=== PATIENT | female | born 1955 | race African-American/Black ===

== ENCOUNTER 2017-06-04 09:10 | Emergency (ER) | payer BC, OTHER ==
[~2017-06-04] VITALS: Ht 180.3 cm; Wt 78.9 kg
[~2017-06-04 09:10] MED LIST: DIPHENHIST25 MG PO; FLEXERIL PO; GLUCOPHAGE500 MG PO; HYDROCHLOROTHIA25 M1 PO; MINIPRIN81 MG PO; PRINIVIL5 MG PO; PRINZIDE 20-121 EACH PO; SIMVASTATIN20 MG PO; VICODIN 5-5001 EACH PO
[2017-06-04] MEDS ORDERED: OXYCONTIN10 M1 PO (09:30)
[2017-06-04] MEDS ORDERED: COZAAR 25 MG TA25 M1 PO (09:30)
[2017-06-04] MEDS ORDERED: ZANTAC 150MG T150 MG PO (09:30)
[2017-06-04 11:25] LABS: ABSOLUTE NEUTROPHILS 2.7 thou/uL (1.4-8.2); BASOPHILS 0.9 % (0.0-2.0); EOSINOPHILS 2.8 % (0.0-3.0); HEMATOCRIT 34.5 % (37.0-47.0); LYMPHOCYTES 48.2 % (24.0-44.0); MANUAL DIFF NO; MCH 26.3 pg (26.0-34.0); MCHC 31.9 g/dL (28.0-37.0); MCV 82.4 fL (80.0-100.0); MONOCYTES 7.2 % (1.0-8.0); PLATELET COUNT 406 thou/uL (150-400); POLYS 40.9 % (36.0-66.0); RBC 4.19 mil/uL (4.20-5.00); RDW 16.3 % (10.5-14.5); WBC 6.6 thou/uL (4.0-11.0)
[2017-06-04 11:42] LABS: APTT 23.1 Seconds (24.5-32.8); PROTIME 10.5 Seconds (9.3-11.4)
[2017-06-04 12:04] LABS: CALCIUM 9.7 mg/dL (8.5-10.1); CREATININE 0.8 mg/dL (0.6-1.0); POTASSIUM 4.3 mmol/L (3.5-5.1)
[2017-06-04 12:19] VITALS: BP 128/72
== END 2017-06-04 12:21 | disposition home or self-care (01) ==
LOC: ER 09:10
PROVIDERS: Emergency Medicine
DX: M25.561 Pain in right knee (principal); E11.9 Type 2 diabetes mellitus without complications; E78.00 Pure hypercholesterolemia, unspecified; I10 Essential (primary) hypertension; F17.210 Nicotine dependence, cigarettes, uncomplicated; Z90.710 Acquired absence of both cervix and uterus; Z88.1 Allergy status to other antibiotic agents; Z88.0 Allergy status to penicillin

== ENCOUNTER 2017-08-03 21:51 | Emergency (ER) | payer BC, OTHER ==
[~2017-08-03] VITALS: Ht 180.3 cm; Wt 80.7 kg
--- NOTE | ~2017-08-03 | EKG ---
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
[~2017-08-03 21:51] MED LIST changes: +ASPIR 8181 MG PO; +ASPIRIN325 PO; +BACTRIM DS TAB1 EACH PO; +BUTALB-APAP-CA1 EACH PO; +CIPRO500 M1 PO; +COZAAR 25 MG TA25 M1 PO; +HYDROCODON-ACE1 EAC5 PO; +HYDROCODONE-AP1 EAC6; +HYZAAR 50-12.51 EACH PO; +LINZESS290 MCG PO; +METFORMIN HCL500 MG PO; +NAPROSYN500 MG PO; +OXYCONTIN10 M1 PO; +PERCOCET PO; +ROBAXIN500 MG PO; +TIMOLOL GL0.5 %/5 M1 OPHTHALMIC; +TRIAMCINOLONE A80 G2 TOP; +ZANTAC 150MG T150 MG PO; +ZOCOR20 MG PO
[2017-08-03 22:47] LABS: ABSOLUTE NEUTROPHILS 5.3 thou/uL (1.4-8.2); BASOPHILS 0.8 % (0.0-2.0); EOSINOPHILS 1.2 % (0.0-3.0); HEMATOCRIT 42.1 % (37.0-47.0); HEMOGLOBIN 13.6 gm/dL (12.0-15.0); LYMPHOCYTES 41.5 % (24.0-44.0); MCH 26.6 pg (26.0-34.0); MCHC 32.2 g/dL (28.0-37.0); MCV 82.4 fL (80.0-100.0); MONOCYTES 4.7 % (1.0-8.0); PLATELET COUNT 336 thou/uL (150-400); POLYS 51.8 % (36.0-66.0); RDW 19.3 % (10.5-14.5); WBC 10.1 thou/uL (4.0-11.0)
[2017-08-03 22:48] LABS: MANUAL DIFF NO
[2017-08-03 22:52] LABS: ANION GAP 8 mmol/L (7-16); BUN 19 mg/dL (7-18); CALCIUM 10.1 mg/dL (8.5-10.1); CHLORIDE 101 mmol/L (98-107); CO2 27 mmol/L (21-32); CREATININE 0.9 mg/dL (0.6-1.0); GLUCOSE 203 mg/dL (74-106); POTASSIUM 3.4 mmol/L (3.5-5.1); SODIUM 136 mmol/L (136-145)
[2017-08-03 23:01] LABS: ALBUMIN 3.7 g/dL (3.4-5.0); ALKALINE PHOSPHATASE 100 U/L (46-116); DIRECT BILIRUBIN < 0.1 mg/dL (<0.1-0.3); SGOT 10 U/L (15-37); SGPT 17 U/L (30-65); TOTAL BILIRUBIN 0.2 mg/dL (<0.1-1.0); TOTAL PROTEIN 7.2 g/dL (6.4-8.2); TROPONIN-I < 0.04 ng/mL (<0.04-0.07)
== END 2017-08-04 02:18 | disposition home or self-care (01) ==
LOC: ER 21:51
PROVIDERS: Emergency Medicine
DX: R07.89 Other chest pain (principal); I10 Essential (primary) hypertension; E11.9 Type 2 diabetes mellitus without complications; F41.9 Anxiety disorder, unspecified; E78.00 Pure hypercholesterolemia, unspecified; F17.210 Nicotine dependence, cigarettes, uncomplicated; Z90.710 Acquired absence of both cervix and uterus; Z96.652 Presence of left artificial knee joint; Z87.19 Personal history of other diseases of the digestive system; Z88.5 Allergy status to narcotic agent; Z88.0 Allergy status to penicillin; Z88.1 Allergy status to other antibiotic agents; Z88.6 Allergy status to analgesic agent

== ENCOUNTER 2017-11-18 09:03 | Emergency (ER) | payer BC, OTHER ==
[~2017-11-18] VITALS: Ht 180.3 cm; Wt 80.3 kg
[2017-11-18 09:30] LABS: URINE BILIRUBIN NEGATIVE (Negative); URINE BLOOD NEGATIVE (Negative); URINE CLARITY CLEAR; URINE COLOR YELLOW; URINE GLUCOSE-RANDOM* NEGATIVE (Negative); URINE KETONES NEGATIVE (Negative); URINE NITRITE-REFLEX NEGATIVE (Negative); URINE PROTEIN (DIPSTICK) NEGATIVE (Negative); URINE UROBILINOGEN 0.2 E.U./dl (0.2-1.0)
[2017-11-18 09:32] LABS: URINE LEUKOCYTES-REFLEX TRACE (Negative)
[2017-11-18 09:51] LABS: ABSOLUTE NEUTROPHILS 3.3 thou/uL (1.4-8.2); EOSINOPHILS 2.1 % (0.0-3.0); HEMATOCRIT 41.9 % (37.0-47.0); HEMOGLOBIN 13.8 gm/dL (12.0-15.0); LYMPHOCYTES 45.9 % (24.0-44.0); MCH 28.8 pg (26.0-34.0); MCHC 33.1 g/dL (28.0-37.0); MCV 87.2 fL (80.0-100.0); MONOCYTES 7.3 % (1.0-8.0); PLATELET COUNT 278 thou/uL (150-400); POLYS 43.7 % (36.0-66.0); RDW 15.1 % (10.5-14.5); WBC 7.6 thou/uL (4.0-11.0)
[2017-11-18 10:00] LABS: CALCIUM 9.3 mg/dL (8.5-10.1); CREATININE 0.6 mg/dL (0.6-1.0); POTASSIUM 4.8 mmol/L (3.5-5.1)
[2017-11-18] MEDS ORDERED: FLEXERIL PO (10:21)
[2017-11-18] MEDS ORDERED: MACROBID 100 M100 M1 PO (10:21)
[2017-11-18 10:23] VITALS: BP 109/68
== END 2017-11-18 10:23 | disposition home or self-care (01) ==
LOC: ER 09:03
PROVIDERS: Physician Assistant
DX: S39.012A Strain of muscle, fascia and tendon of lower back, initial encounter (principal); N39.0 Urinary tract infection, site not specified; I10 Essential (primary) hypertension; E11.9 Type 2 diabetes mellitus without complications; E78.00 Pure hypercholesterolemia, unspecified; F41.9 Anxiety disorder, unspecified; F17.210 Nicotine dependence, cigarettes, uncomplicated; Z90.710 Acquired absence of both cervix and uterus; Z88.0 Allergy status to penicillin; Z88.1 Allergy status to other antibiotic agents; Z88.5 Allergy status to narcotic agent; X58.XXXA Exposure to other specified factors, initial encounter; Y93.89 Activity, other specified; Y92.89 Other specified places as the place of occurrence of the external cause; Y99.8 Other external cause status

== ENCOUNTER 2018-03-24 10:19 | Emergency (ER) | payer BC, OTHER ==
[~2018-03-24] VITALS: Ht 180.3 cm; Wt 82.6 kg
[~2018-03-24 10:19] MED LIST changes: +MACROBID 100 M100 M1 PO
[2018-03-24] MEDS ORDERED: BUTALB-APAP-CA1 EACH PO (11:25)
[2018-03-24] MEDS ORDERED: CYCLOBENZAPRINE5 MG PO (11:25)
== END 2018-03-24 11:38 | disposition home or self-care (01) ==
LOC: ER 10:19
DX: G44.209 Tension-type headache, unspecified, not intractable (principal); I10 Essential (primary) hypertension; E11.9 Type 2 diabetes mellitus without complications; E78.00 Pure hypercholesterolemia, unspecified; F41.9 Anxiety disorder, unspecified; F17.210 Nicotine dependence, cigarettes, uncomplicated; Z90.89 Acquired absence of other organs; Z88.6 Allergy status to analgesic agent; Z88.5 Allergy status to narcotic agent; Z88.1 Allergy status to other antibiotic agents; Z88.0 Allergy status to penicillin

== ENCOUNTER → 2018-08-02 | Outpatient (CLI) | payer BC, OTHER ==
[~2018-08-02] MED LIST changes: +CYCLOBENZAPRINE5 MG PO
== END ==
LOC: ULTRA 08:25
DX: K76.0 Fatty (change of) liver, not elsewhere classified (principal)

== ENCOUNTER 2018-12-07 12:06 | Emergency (ER) | payer BC, OTHER ==
[~2018-12-07] VITALS: Ht 180.3 cm; Wt 83.9 kg
[2018-12-07 12:06] VITALS: BP 116/82
[2018-12-07] MEDS ORDERED: LOSARTAN-HCTZ1 EACH PO (12:12)
[2018-12-07] MEDS ORDERED: PROMETHAZINE-C473 ML PO (12:13)
[2018-12-07] MEDS ORDERED: NEOMYC-POLYM-DEX5 ML OPHTHALMIC (12:41)
== END 2018-12-07 12:54 | disposition home or self-care (01) ==
LOC: ER 12:06
DX: H10.31 Unspecified acute conjunctivitis, right eye (principal); F17.210 Nicotine dependence, cigarettes, uncomplicated; I10 Essential (primary) hypertension; E78.00 Pure hypercholesterolemia, unspecified; E11.9 Type 2 diabetes mellitus without complications; F41.9 Anxiety disorder, unspecified; Z88.8 Allergy status to other drugs, medicaments and biological substances; Z88.5 Allergy status to narcotic agent; Z88.1 Allergy status to other antibiotic agents; Z88.0 Allergy status to penicillin; Z90.710 Acquired absence of both cervix and uterus; Z98.890 Other specified postprocedural states; Z96.652 Presence of left artificial knee joint

== ENCOUNTER 2019-05-07 16:14 | Emergency (ER) | payer BC, OTHER ==
[~2019-05-07] VITALS: Ht 180.3 cm; Wt 82.1 kg
[~2019-05-07 16:14] MED LIST changes: +LOSARTAN-HCTZ1 EACH PO; +NEOMYC-POLYM-DEX5 ML OPHTHALMIC; +PROMETHAZINE-C473 ML PO
[2019-05-07 16:48] VITALS: BP 131/78
== END 2019-05-07 17:00 | disposition home or self-care (01) ==
LOC: ER 16:14
DX: J34.89 Other specified disorders of nose and nasal sinuses (principal); F17.210 Nicotine dependence, cigarettes, uncomplicated; I10 Essential (primary) hypertension; E78.00 Pure hypercholesterolemia, unspecified; E11.9 Type 2 diabetes mellitus without complications; F41.0 Panic disorder [episodic paroxysmal anxiety]; Z88.6 Allergy status to analgesic agent; Z88.5 Allergy status to narcotic agent; Z88.1 Allergy status to other antibiotic agents; Z88.0 Allergy status to penicillin; Z90.710 Acquired absence of both cervix and uterus; Z98.890 Other specified postprocedural states; Z96.652 Presence of left artificial knee joint

== ENCOUNTER 2019-05-12 16:25 | Emergency (ER) | payer BC, OTHER ==
[~2019-05-12] VITALS: Ht 180.3 cm; Wt 82.1 kg
[2019-05-12] MEDS ORDERED: NAPROSYN500 MG PO (18:10)
[2019-05-12 18:15] VITALS: BP 124/79
== END 2019-05-12 18:15 | disposition home or self-care (01) ==
LOC: ER 16:25
DX: R51 Headache (principal); J34.89 Other specified disorders of nose and nasal sinuses; I10 Essential (primary) hypertension; E11.9 Type 2 diabetes mellitus without complications; F41.0 Panic disorder [episodic paroxysmal anxiety]; E78.00 Pure hypercholesterolemia, unspecified; F17.210 Nicotine dependence, cigarettes, uncomplicated; Z96.652 Presence of left artificial knee joint; Z90.710 Acquired absence of both cervix and uterus; Z98.890 Other specified postprocedural states; Z88.0 Allergy status to penicillin; Z88.1 Allergy status to other antibiotic agents; Z88.6 Allergy status to analgesic agent; Z79.84 Long term (current) use of oral hypoglycemic drugs

== ENCOUNTER 2019-05-18 19:19 | Emergency (ER) | payer BC, OTHER ==
[~2019-05-18] VITALS: Ht 180.3 cm; Wt 82.1 kg
[2019-05-18 19:20] VITALS: BP 141/82
[2019-05-18] MEDS ORDERED: BUTALB-APAP-CA1 EACH PO (19:50)
== END 2019-05-18 20:25 | disposition home or self-care (01) ==
LOC: ER 19:19
DX: R51 Headache (principal); I10 Essential (primary) hypertension; E11.9 Type 2 diabetes mellitus without complications; E78.5 Hyperlipidemia, unspecified; F41.9 Anxiety disorder, unspecified; F17.210 Nicotine dependence, cigarettes, uncomplicated; Z90.710 Acquired absence of both cervix and uterus; Z98.890 Other specified postprocedural states; Z96.652 Presence of left artificial knee joint; Z88.0 Allergy status to penicillin; Z88.6 Allergy status to analgesic agent

== ENCOUNTER 2019-05-22 07:14 | Emergency (ER) | payer BC, OTHER ==
[~2019-05-22] VITALS: Ht 180.3 cm; Wt 83.5 kg
[2019-05-22] MEDS ORDERED: TROKENDI XR50 MG PO (07:30)
[2019-05-22] MEDS ORDERED: BUTALB-APAP-CA1 EACH PO (07:30)
[2019-05-22] MEDS ORDERED: IMITREX100 MG PO (07:31)
[2019-05-22 08:14] LABS: URINE BILIRUBIN NEGATIVE (Negative); URINE BLOOD NEGATIVE (Negative); URINE CLARITY CLEAR; URINE COLOR YELLOW; URINE GLUCOSE-RANDOM* NEGATIVE (Negative); URINE KETONES NEGATIVE (Negative); URINE LEUKOCYTES-REFLEX NEGATIVE (Negative); URINE NITRITE-REFLEX NEGATIVE (Negative); URINE PROTEIN (DIPSTICK) NEGATIVE (Negative); URINE UROBILINOGEN 0.2 E.U./dl (0.2-1.0)
[2019-05-22 08:31] LABS: HEMATOCRIT 41.4 % (37.0-47.0); HEMOGLOBIN 13.8 gm/dL (12.0-15.0); MCH 29.5 pg (26.0-34.0); MCHC 33.3 g/dL (28.0-37.0); MCV 88.7 fL (80.0-100.0); RBC 4.67 mil/uL (4.20-5.00); WBC 6.2 thou/uL (4.0-11.0)
[2019-05-22 08:38] LABS: CALCIUM 9.7 mg/dL (8.5-10.1); CREATININE 0.9 mg/dL (0.6-1.0); POTASSIUM 4.2 mmol/L (3.5-5.1)
[2019-05-22 08:44] LABS: ALBUMIN 3.7 g/dL (3.4-5.0); MAGNESIUM 2.1 mg/dL (1.8-2.4); TOTAL BILIRUBIN 0.2 mg/dL (<0.1-1.0); TOTAL PROTEIN 7.1 g/dL (6.4-8.2)
[2019-05-22] MEDS ORDERED: ANTIVERT25 MG PO (10:42)
[2019-05-22 10:57] VITALS: BP 119/65
--- NOTE | 2019-05-23 07:39 | EKG ---
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: : 1955 Requested By: Eliel Ashley Order Number: [id number] MD: Tevin Conti Measurements Intervals [place] Rate: 75 P: 55 [place]: 207 QRS: 12 QRSD: 95 T: 53 QT: 399 QTc: 446 Interpretive Statements Sinus rhythm RSR' in V1 or V2, right VCD Compared to ECG 08/03/2017 21:57:02 no significant change was found Electronically Signed On 05-23-2019 7:38:57 CDT by Tevin Conti [email or web address] <ELECTRONICALLY SIGNED> By: Tevin Conti MD, [facility] 05/23/19 0738 [id number] [id number] Tevin Conti MD, [facility] /EPI
== END 2019-05-22 10:57 | disposition home or self-care (01) ==
LOC: ER 07:14
PROVIDERS: Emergency Medicine
DX: R42 Dizziness and giddiness (principal); R51 Headache; H53.8 Other visual disturbances; I10 Essential (primary) hypertension; F41.9 Anxiety disorder, unspecified; E78.00 Pure hypercholesterolemia, unspecified; E11.9 Type 2 diabetes mellitus without complications; F17.210 Nicotine dependence, cigarettes, uncomplicated; Z88.0 Allergy status to penicillin; Z88.5 Allergy status to narcotic agent; Z88.1 Allergy status to other antibiotic agents; Z88.6 Allergy status to analgesic agent; Z90.710 Acquired absence of both cervix and uterus; Z98.890 Other specified postprocedural states; Z96.652 Presence of left artificial knee joint

== ENCOUNTER 2019-05-25 16:03 | Emergency (ER) | payer BC, OTHER ==
[~2019-05-25 16:03] MED LIST changes: +ANTIVERT25 MG PO; +IMITREX100 MG PO; +TROKENDI XR50 MG PO
== END 2019-05-25 17:03 | disposition left against medical advice (07) ==
LOC: ER 16:03
DX: Z53.21 Procedure and treatment not carried out due to patient leaving prior to being seen by health care provider (principal)

== ENCOUNTER 2019-05-28 12:53 | Emergency (ER) | payer BC, OTHER ==
[~2019-05-28] VITALS: Ht 180.3 cm; Wt 83.5 kg
[2019-05-28 14:20] VITALS: BP 135/79
--- NOTE | 2019-05-30 17:53 | EKG ---
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
== END 2019-05-28 14:21 | disposition home or self-care (01) ==
LOC: ER 12:53
DX: R51 Headache (principal); R42 Dizziness and giddiness; F17.210 Nicotine dependence, cigarettes, uncomplicated; I10 Essential (primary) hypertension; E78.00 Pure hypercholesterolemia, unspecified; E11.9 Type 2 diabetes mellitus without complications; F41.0 Panic disorder [episodic paroxysmal anxiety]; Z88.6 Allergy status to analgesic agent; Z88.5 Allergy status to narcotic agent; Z88.1 Allergy status to other antibiotic agents; Z88.0 Allergy status to penicillin; Z90.710 Acquired absence of both cervix and uterus; Z98.890 Other specified postprocedural states; Z96.652 Presence of left artificial knee joint

== ENCOUNTER → 2019-06-12 | Outpatient (CLI) | payer BC, OTHER ==
[2019-06-12 10:51] LABS: CALCIUM 9.6 mg/dL (8.5-10.1); CREATININE 0.9 mg/dL (0.6-1.0); POTASSIUM 4.8 mmol/L (3.5-5.1)
== END ==
LOC: CAT 10:15
PROVIDERS: Psychiatry & Neurology Neuromuscular Medicine
DX: G44.001 Cluster headache syndrome, unspecified, intractable (principal)

== ENCOUNTER → 2019-06-13 | Outpatient (CLI) | payer BC, OTHER | LOC: CAT 09:23 | DX: G44.001 Cluster headache syndrome, unspecified, intractable (principal) ==

== ENCOUNTER 2019-06-27 23:02 | Emergency (ER) | payer BC, OTHER ==
[~2019-06-27] VITALS: Ht 180.3 cm; Wt 82.1 kg
[2019-06-27] MEDS ORDERED: FLONASE 0.05%50 MCG NASAL (23:08)
[2019-06-27] MEDS ORDERED: CARBAMAZEPINE100 M1 PO (23:09)
[2019-06-27] MEDS ORDERED: OXYCODONE HCL10 MG PO (23:10)
[2019-06-28 01:06] VITALS: BP 136/74
== END 2019-06-28 01:07 | disposition home or self-care (01) ==
LOC: ER 23:02
DX: M25.431 Effusion, right wrist (principal); I10 Essential (primary) hypertension; E11.9 Type 2 diabetes mellitus without complications; F41.9 Anxiety disorder, unspecified; E78.00 Pure hypercholesterolemia, unspecified; F17.210 Nicotine dependence, cigarettes, uncomplicated; Z96.652 Presence of left artificial knee joint; Z90.710 Acquired absence of both cervix and uterus; Z88.6 Allergy status to analgesic agent; Z88.5 Allergy status to narcotic agent; Z88.0 Allergy status to penicillin; Z88.1 Allergy status to other antibiotic agents

== ENCOUNTER 2019-07-17 08:20 | Emergency (ER) | payer BC, OTHER ==
[~2019-07-17] VITALS: Ht 180.3 cm; Wt 83.9 kg
[~2019-07-17 08:20] MED LIST changes: +CARBAMAZEPINE100 M1 PO; +FLONASE 0.05%50 MCG NASAL; +OXYCODONE HCL10 MG PO
[2019-07-17] MEDS ORDERED: LINZESS290 MCG PO (08:51)
[2019-07-17 09:06] LABS: URINE BILIRUBIN NEGATIVE (Negative); URINE BLOOD NEGATIVE (Negative); URINE CLARITY CLEAR; URINE COLOR YELLOW; URINE GLUCOSE-RANDOM* 2+ (Negative); URINE KETONES NEGATIVE (Negative); URINE LEUKOCYTES-REFLEX NEGATIVE (Negative); URINE NITRITE-REFLEX NEGATIVE (Negative); URINE PROTEIN (DIPSTICK) NEGATIVE (Negative); URINE SPECIFIC GRAVITY <= 1.005 (1.005-1.035); URINE UROBILINOGEN 0.2 E.U./dl (0.2-1.0)
[2019-07-17 09:37] LABS: ABSOLUTE NEUTROPHILS 4.6 thou/uL (1.4-8.2); BASOPHILS 0.6 % (0.0-2.0); EOSINOPHILS 0.7 % (0.0-3.0); HEMATOCRIT 40.8 % (37.0-47.0); HEMOGLOBIN 13.2 gm/dL (12.0-15.0); LYMPHOCYTES 32.8 % (24.0-44.0); MCH 28.5 pg (26.0-34.0); MCHC 32.4 g/dL (28.0-37.0); MCV 88.1 fL (80.0-100.0); MONOCYTES 7.6 % (1.0-8.0); PLATELET COUNT 327 thou/uL (150-400); POLYS 58.3 % (36.0-66.0); RBC 4.63 mil/uL (4.20-5.00); RDW 14.4 % (10.5-14.5); WBC 7.9 thou/uL (4.0-11.0)
[2019-07-17 11:31] LABS: CALCIUM 9.8 mg/dL (8.5-10.1); CREATININE 0.7 mg/dL (0.6-1.0); POTASSIUM 3.9 mmol/L (3.5-5.1)
[2019-07-17 11:37] LABS: ALBUMIN 3.7 g/dL (3.4-5.0); TOTAL BILIRUBIN 0.3 mg/dL (<0.1-1.0); TOTAL PROTEIN 7.6 g/dL (6.4-8.2)
[2019-07-17 11:52] VITALS: BP 120/75
== END 2019-07-17 11:52 | disposition left against medical advice (07) ==
LOC: ER 08:20
PROVIDERS: Emergency Medicine
DX: R10.30 Lower abdominal pain, unspecified (principal); I10 Essential (primary) hypertension; E11.9 Type 2 diabetes mellitus without complications; F41.9 Anxiety disorder, unspecified; E78.00 Pure hypercholesterolemia, unspecified; F17.210 Nicotine dependence, cigarettes, uncomplicated; Z96.652 Presence of left artificial knee joint; Z90.710 Acquired absence of both cervix and uterus; Z98.890 Other specified postprocedural states; Z88.6 Allergy status to analgesic agent; Z88.5 Allergy status to narcotic agent; Z88.1 Allergy status to other antibiotic agents; Z88.0 Allergy status to penicillin

== ENCOUNTER 2019-07-20 18:55 | Emergency (ER) | payer BC, OTHER ==
[~2019-07-20] VITALS: Ht 180.3 cm; Wt 83.9 kg
[2019-07-20 20:46] VITALS: BP 132/80
== END 2019-07-20 20:48 | disposition home or self-care (01) ==
LOC: ER 18:55
DX: S27.818A Other injury of esophagus (thoracic part), initial encounter (principal); I10 Essential (primary) hypertension; E78.00 Pure hypercholesterolemia, unspecified; E11.9 Type 2 diabetes mellitus without complications; F41.9 Anxiety disorder, unspecified; F17.210 Nicotine dependence, cigarettes, uncomplicated; Z90.710 Acquired absence of both cervix and uterus; Z98.890 Other specified postprocedural states; Z96.652 Presence of left artificial knee joint; Z88.6 Allergy status to analgesic agent; Z88.1 Allergy status to other antibiotic agents; Z88.0 Allergy status to penicillin; X58.XXXA Exposure to other specified factors, initial encounter; Y93.89 Activity, other specified; Y92.89 Other specified places as the place of occurrence of the external cause; Y99.8 Other external cause status

== ENCOUNTER 2019-08-20 08:18 | Emergency (ER) | payer BC, OTHER ==
[~2019-08-20] VITALS: Ht 180.3 cm; Wt 83.5 kg
[2019-08-20] MEDS ORDERED: TESSALON PERLE100 M1 PO (10:01)
[2019-08-20 10:16] VITALS: BP 122/80
== END 2019-08-20 10:17 | disposition home or self-care (01) ==
LOC: ER 08:18
DX: J40 Bronchitis, not specified as acute or chronic (principal); I10 Essential (primary) hypertension; E78.00 Pure hypercholesterolemia, unspecified; E11.9 Type 2 diabetes mellitus without complications; F41.9 Anxiety disorder, unspecified; F17.210 Nicotine dependence, cigarettes, uncomplicated; Z90.710 Acquired absence of both cervix and uterus; Z98.890 Other specified postprocedural states; Z96.652 Presence of left artificial knee joint; Z88.0 Allergy status to penicillin; Z88.1 Allergy status to other antibiotic agents; Z88.6 Allergy status to analgesic agent; Z88.8 Allergy status to other drugs, medicaments and biological substances

== ENCOUNTER 2019-09-06 10:36 | Emergency (ER) | payer BC, OTHER ==
[~2019-09-06] VITALS: Ht 180.3 cm; Wt 82.1 kg
[2019-09-06 10:36] VITALS: BP 120/71
[~2019-09-06 10:36] MED LIST changes: +TESSALON PERLE100 M1 PO
== END 2019-09-06 11:00 | disposition home or self-care (01) ==
LOC: ER 10:36
DX: R05 Cough (principal); I10 Essential (primary) hypertension; E11.9 Type 2 diabetes mellitus without complications; E78.00 Pure hypercholesterolemia, unspecified; F41.9 Anxiety disorder, unspecified; F17.210 Nicotine dependence, cigarettes, uncomplicated; Z90.710 Acquired absence of both cervix and uterus; Z98.890 Other specified postprocedural states; Z96.652 Presence of left artificial knee joint; Z88.0 Allergy status to penicillin; Z88.1 Allergy status to other antibiotic agents; Z88.6 Allergy status to analgesic agent

== ENCOUNTER 2019-10-19 10:14 | Emergency (ER) | payer BC, OTHER ==
[~2019-10-19] VITALS: Ht 180.3 cm; Wt 82.1 kg
[2019-10-19 11:02] LABS: URINE BILIRUBIN NEGATIVE (Negative); URINE BLOOD NEGATIVE (Negative); URINE CLARITY CLEAR; URINE COLOR YELLOW; URINE GLUCOSE-RANDOM* NEGATIVE (Negative); URINE KETONES NEGATIVE (Negative); URINE LEUKOCYTES-REFLEX NEGATIVE (Negative); URINE NITRITE-REFLEX NEGATIVE (Negative); URINE PROTEIN (DIPSTICK) NEGATIVE (Negative)
[2019-10-19 11:36] LABS: ABSOLUTE NEUTROPHILS 2.5 thou/uL (1.4-8.2); BASOPHILS 0.8 % (0.0-2.0); EOSINOPHILS 1.9 % (0.0-3.0); HEMATOCRIT 40.7 % (37.0-47.0); HEMOGLOBIN 13.2 gm/dL (12.0-15.0); LYMPHOCYTES 48.9 % (24.0-44.0); MCH 28.6 pg (26.0-34.0); MCHC 32.3 g/dL (28.0-37.0); MCV 88.7 fL (80.0-100.0); MONOCYTES 5.7 % (1.0-8.0); PLATELET COUNT 281 thou/uL (150-400); POLYS 42.7 % (36.0-66.0); RBC 4.59 mil/uL (4.20-5.00); RDW 14.2 % (10.5-14.5); WBC 5.9 thou/uL (4.0-11.0)
[2019-10-19 11:47] LABS: CALCIUM 10.3 mg/dL (8.5-10.1); CREATININE 0.9 mg/dL (0.6-1.0); POTASSIUM 3.9 mmol/L (3.5-5.1)
[2019-10-19 11:54] LABS: TOTAL BILIRUBIN 0.3 mg/dL (<0.1-1.0)
[2019-10-19] MEDS ORDERED: PREDNISONE 20 M20 MG PO (13:22)
[2019-10-19] MEDS ORDERED: CYCLOBENZAPRINE10 MG PO (13:22)
[2019-10-19] MEDS ORDERED: ULTRAM 50MG TAB50 MG PO (13:29)
[2019-10-19 13:40] VITALS: BP 117/69
== END 2019-10-19 13:40 | disposition home or self-care (01) ==
LOC: ER 10:14
PROVIDERS: Physician Assistant
DX: M51.37 Other intervertebral disc degeneration, lumbosacral region (principal); R05 Cough; I10 Essential (primary) hypertension; E78.00 Pure hypercholesterolemia, unspecified; E11.9 Type 2 diabetes mellitus without complications; F41.9 Anxiety disorder, unspecified; F17.210 Nicotine dependence, cigarettes, uncomplicated; Z90.710 Acquired absence of both cervix and uterus; Z98.890 Other specified postprocedural states; Z96.652 Presence of left artificial knee joint; Z88.0 Allergy status to penicillin; Z88.1 Allergy status to other antibiotic agents; Z88.6 Allergy status to analgesic agent

== ENCOUNTER 2019-11-10 11:02 | Emergency (ER) | payer BC, OTHER ==
[~2019-11-10] VITALS: Ht 180.3 cm; Wt 82.1 kg
[~2019-11-10 11:02] MED LIST changes: +CYCLOBENZAPRINE10 MG PO; +PREDNISONE 20 M20 MG PO; +ULTRAM 50MG TAB50 MG PO
[2019-11-10 12:22] VITALS: BP 130/87
== END 2019-11-10 12:23 | disposition home or self-care (01) ==
LOC: ER 11:02
DX: S46.812A Strain of other muscles, fascia and tendons at shoulder and upper arm level, left arm, initial encounter (principal); I10 Essential (primary) hypertension; E11.9 Type 2 diabetes mellitus without complications; F41.9 Anxiety disorder, unspecified; F17.210 Nicotine dependence, cigarettes, uncomplicated; Z90.710 Acquired absence of both cervix and uterus; Z98.890 Other specified postprocedural states; Z96.652 Presence of left artificial knee joint; Z88.0 Allergy status to penicillin; Z88.1 Allergy status to other antibiotic agents; Z88.6 Allergy status to analgesic agent; X50.9XXA Other and unspecified overexertion or strenuous movements or postures, initial encounter; Y93.89 Activity, other specified; Y92.89 Other specified places as the place of occurrence of the external cause; Y99.8 Other external cause status

== ENCOUNTER → 2019-12-19 | Outpatient (CLI) | payer BC, OTHER ==
[~2019-12-19] VITALS: Ht 180.3 cm; Wt 82.1 kg
[~2019-12-19] MED LIST changes: +HAIR, SKIN & N1 EAC3 PO; +PEPCID20 MG PO
[2019-12-19 10:13] VITALS: BP 141/79
== END ==
LOC: MRI 08:06
DX: R19.7 Diarrhea, unspecified (principal); I10 Essential (primary) hypertension; E11.9 Type 2 diabetes mellitus without complications; E78.00 Pure hypercholesterolemia, unspecified; F41.9 Anxiety disorder, unspecified; F17.210 Nicotine dependence, cigarettes, uncomplicated; Z90.710 Acquired absence of both cervix and uterus; Z96.653 Presence of artificial knee joint, bilateral; Z98.890 Other specified postprocedural states; Z88.0 Allergy status to penicillin; Z88.1 Allergy status to other antibiotic agents; Z88.6 Allergy status to analgesic agent
CPT/HCPCS: 50010; 70005

== ENCOUNTER 2020-01-02 10:41 | Emergency (ER) | payer BC, OTHER ==
[~2020-01-02] VITALS: Ht 180.3 cm; Wt 82.1 kg
[2020-01-02 11:17] LABS: EOSINOPHILS 2.3 % (0.0-3.0); HEMATOCRIT 42.7 % (37.0-47.0); LYMPHOCYTES 43.9 % (24.0-44.0); MCHC 32.9 g/dL (28.0-37.0); MCV 88.2 fL (80.0-100.0); MONOCYTES 7.1 % (1.0-8.0); PLATELET COUNT 292 thou/uL (150-400); POLYS 45.7 % (36.0-66.0); RBC 4.84 mil/uL (4.20-5.00); RDW 14.2 % (10.5-14.5); WBC 6.6 thou/uL (4.0-11.0)
[2020-01-02 11:25] LABS: ANION GAP 6 mmol/L (7-16); BUN 15 mg/dL (7-18); CHLORIDE 101 mmol/L (98-107); CO2 30 mmol/L (21-32); CREATININE 0.8 mg/dL (0.6-1.0); GLUCOSE 104 mg/dL (74-106); POTASSIUM 3.8 mmol/L (3.5-5.1); SODIUM 137 mmol/L (136-145)
[2020-01-02 11:31] LABS: ALBUMIN 3.8 g/dL (3.4-5.0); DIRECT BILIRUBIN < 0.1 mg/dL (<0.1-0.2); LIPASE 162 U/L (73-393); SGOT 16 U/L (15-37); SGPT 26 U/L (30-65); TOTAL BILIRUBIN 0.3 mg/dL (<0.1-1.0); TOTAL PROTEIN 7.5 g/dL (6.4-8.2)
[2020-01-02 12:47] VITALS: BP 124/82
== END 2020-01-02 12:50 | disposition home or self-care (01) ==
LOC: ER 10:41
PROVIDERS: Nurse Practitioner
DX: R10.13 Epigastric pain (principal); R19.5 Other fecal abnormalities; I10 Essential (primary) hypertension; E78.00 Pure hypercholesterolemia, unspecified; E11.9 Type 2 diabetes mellitus without complications; F17.210 Nicotine dependence, cigarettes, uncomplicated; Z88.6 Allergy status to analgesic agent; Z88.5 Allergy status to narcotic agent; Z88.8 Allergy status to other drugs, medicaments and biological substances; Z88.0 Allergy status to penicillin; Z79.899 Other long term (current) drug therapy; Z90.710 Acquired absence of both cervix and uterus; Z96.653 Presence of artificial knee joint, bilateral; Z98.890 Other specified postprocedural states

== ENCOUNTER 2020-01-26 06:35 | Emergency (ER) | payer BC, OTHER ==
[~2020-01-26] VITALS: Ht 180.3 cm; Wt 82.1 kg
[2020-01-26 07:28] LABS: ABSOLUTE NEUTROPHILS 3.5 thou/uL (1.4-8.2); BASOPHILS 0.9 % (0.0-2.0); EOSINOPHILS 1.8 % (0.0-3.0); HEMATOCRIT 40.1 % (37.0-47.0); HEMOGLOBIN 13.3 gm/dL (12.0-15.0); LYMPHOCYTES 43.5 % (24.0-44.0); MCH 29.5 pg (26.0-34.0); MCHC 33.1 g/dL (28.0-37.0); MCV 88.9 fL (80.0-100.0); MONOCYTES 7.4 % (1.0-8.0); PLATELET COUNT 265 thou/uL (150-400); POLYS 46.4 % (36.0-66.0); RBC 4.51 mil/uL (4.20-5.00); RDW 14.1 % (10.5-14.5); WBC 7.6 thou/uL (4.0-11.0)
[2020-01-26 07:38] LABS: CALCIUM 9.2 mg/dL (8.5-10.1); CREATININE 0.8 mg/dL (0.6-1.0); POTASSIUM 4.1 mmol/L (3.5-5.1)
[2020-01-26 07:44] LABS: URINE BILIRUBIN NEGATIVE (Negative); URINE BLOOD NEGATIVE (Negative); URINE CLARITY CLEAR; URINE COLOR YELLOW; URINE GLUCOSE-RANDOM* NEGATIVE (Negative); URINE KETONES NEGATIVE (Negative); URINE LEUKOCYTES-REFLEX 1+ (Negative); URINE NITRITE-REFLEX NEGATIVE (Negative); URINE PROTEIN (DIPSTICK) NEGATIVE (Negative); URINE UROBILINOGEN 0.2 E.U./dl (0.2-1.0)
[2020-01-26 07:44] LABS: ALBUMIN 3.7 g/dL (3.4-5.0); TOTAL BILIRUBIN 0.3 mg/dL (<0.1-1.0); TOTAL PROTEIN 7.1 g/dL (6.4-8.2)
[2020-01-26 08:43] LABS: CASTS None Seen /LPF (None Seen); CRYSTALS None Seen /LPF (None Seen); SQUAMOUS 4-10 Moderate /LPF (0-3); URINE RBC None Seen /HPF (0-2)
[2020-01-26 08:44] LABS: BACTERIA-REFLEX 1-9 Few /HPF (None Seen); URINE WBC-REFLEX 0-5 Rare /HPF (0-5)
[2020-01-26] MEDS ORDERED: MIRALAX119 GM PO (09:04)
[2020-01-26 09:21] VITALS: BP 141/87
== END 2020-01-26 09:21 | disposition home or self-care (01) ==
LOC: ER 06:35
PROVIDERS: Emergency Medicine Emergency Medical Services
DX: K59.00 Constipation, unspecified (principal); M54.5 Low back pain; I10 Essential (primary) hypertension; E11.9 Type 2 diabetes mellitus without complications; E78.00 Pure hypercholesterolemia, unspecified; F41.9 Anxiety disorder, unspecified; F17.210 Nicotine dependence, cigarettes, uncomplicated; Z90.710 Acquired absence of both cervix and uterus; Z98.890 Other specified postprocedural states; Z96.653 Presence of artificial knee joint, bilateral; Z88.0 Allergy status to penicillin; Z88.1 Allergy status to other antibiotic agents; Z88.6 Allergy status to analgesic agent

== ENCOUNTER → 2020-03-17 | Outpatient (CLI) | payer OTHER ==
[~2020-03-17] MED LIST changes: +MIRALAX119 GM PO
== END ==
LOC: ULTRA 10:46
DX: K76.0 Fatty (change of) liver, not elsewhere classified (principal); R16.0 Hepatomegaly, not elsewhere classified

== ENCOUNTER → 2020-07-08 | Outpatient (CLI) | payer OTHER | LOC: BC 11:00 | PROVIDERS: ATTEND Family Medicine | DX: Z12.31 Encounter for screening mammogram for malignant neoplasm of breast (principal) ==

== ENCOUNTER → 2021-02-10 | Outpatient (CLI) | payer OTHER ==
[~2021-02-10] MED LIST changes: +NEXIUM 40 MG CA40 M1 PO; +VITAMIN C500 M1 PO; +VITAMIN D375 MCG PO
== END ==
LOC: LAB 13:16
PROVIDERS: Student in an Organized Health Care Education/Training Program; ATTEND Neurological Surgery
DX: Z01.812 Encounter for preprocedural laboratory examination (principal); Z20.822 Contact with and (suspected) exposure to COVID-19